=== PATIENT | male | born 1990 | race African-American/Black ===

== ENCOUNTER 2020-05-17 17:53 | Inpatient (IN) | payer SELFPAY ==
[~2020-05-17] VITALS: Ht 177.8 cm; Wt 142.4 kg
[2020-05-17] MEDS ORDERED: CEFTRIAXONE 1 G PREMIX 50 ML IV ONE (19:00)
[2020-05-17] MEDS ORDERED: AZITHROMYCIN 500 MG in DEXT 5% WATER 250 ML IV ONE (19:00)
[2020-05-17] MEDS ORDERED: DEXAMETHASONE 10 MG/ML VIAL IV ONE (19:00)
[2020-05-17] MEDS ORDERED: ASPIRIN 81MG TABLET PO ONE (19:30)
[2020-05-17 19:57] LABS: HEMATOCRIT. 48.3 % (42.0-52.0); HEMOGLOBIN. 15.9 g/dL (14.0-18.0); MEAN CORPUSCULAR HEMOGLOBIN 29.8 pg (28.0-32.0); MEAN CORPUSCULAR VOLUME 90.5 fL (80.0-94.0); PLATELET 429 x1000/uL (130-400); RED BLOOD CELL COUNT 5.34 mill/uL (4.7-6.1); RED CELL DISTRIBUTION WIDTH 14.3 % (11.6-14.6)
[2020-05-17 20:03] LABS: CHLORIDE 101 mEq/L (98-107)
[2020-05-17 20:14] LABS: D-DIMER 11.31 mg/L FEU (<0.50); INR 1.1; PARTIAL THROMBOPLASTIN TIME 25.9 sec (23.4-31.0); PROTHROMBIN TIME 11.3 sec (9.6-11.0)
[2020-05-17] MEDS ORDERED: ENOXAPARIN 150MG/ML SYR SUBCUT ONE (20:45)
[2020-05-17 20:56] LABS: PLATELET ESTIMATE SLIGHTLY INCREASED
[2020-05-17] MEDS ORDERED: IOHEXOL-350 100 ML BOTTLE ONE (23:22)
[2020-05-18] VITALS (7 sets, daily range): BP systolic 132–154; BP diastolic 77–100
[2020-05-18] MEDS ORDERED: ALBUTEROL 6.7GM HFA INHALER ORI PRN (00:45)
[2020-05-18] MEDS ORDERED: CEFTRIAXONE 1 G PREMIX 50 ML IV SCH (00:45)
[2020-05-18] MEDS: ACETAMINOPHEN 325MG TABLET PO PRN ×2 (00:55→17:38)
[2020-05-18] MEDS: FAMOTIDINE 20MG TABLET PO SCH ×2 (08:35→20:35)
[2020-05-18] MEDS: DEXAMETHASONE 4MG/ML 1ML VIAL IV SCH (08:47)
[2020-05-18] MEDS ORDERED: ENOXAPARIN 40MG/0.4ML SYR SUBCUT SCH (09:00)
[2020-05-18] MEDS ORDERED: ENOXAPARIN 100MG/ML SYR SUBCUT NR (09:45)
[2020-05-18 12:29] LABS: HEMATOCRIT. 43.5 % (42.0-52.0); MEAN CORPUSCULAR HEMOGLOBIN 31.2 pg (28.0-32.0); MEAN CORPUSCULAR VOLUME 90.3 fL (80.0-94.0); MEAN PLATELET VOLUME 7.2 fl (7.4-10.4); PLATELET 404 x1000/uL (130-400); RED BLOOD CELL COUNT 4.82 mill/uL (4.7-6.1); RED CELL DISTRIBUTION WIDTH 14.1 % (11.6-14.6)
[2020-05-18 12:35] LABS: CHLORIDE 106 mEq/L (98-107)
[2020-05-18] MEDS: AMLODIPINE 10MG TABLET PO SCH (12:57)
[2020-05-18 16:44] LABS: CLARITY URINE CLOUDY (CLEAR); COLOR URINE DARK YELLOW (YELLOW); KETONES URINE TRACE (NEGATIVE); LEUKOCYTE ESTERASE URINE NEGATIVE (NEGATIVE); NITRITE URINE NEGATIVE (NEGATIVE); OCCULT BLOOD URINE NEGATIVE (NEGATIVE); PROTEIN URINE TRACE (NEGATIVE); SPECIFIC GRAVITY URINE 1.032 (1.005-1.030)
[2020-05-18 17:03] LABS: *AMPHETAMINES SCREEN URINE NEGATIVE (NEGATIVE); *BARBITURATES SCREEN URINE NEGATIVE (NEGATIVE); *BENZODIAZEPINES SCREEN URINE NEGATIVE (NEGATIVE); *COCAINE SCREEN URINE NEGATIVE (NEGATIVE); METHADONE URINE SCREEN NEGATIVE (NEGATIVE)
[2020-05-18 17:04] LABS: CANNABINOID URINE SCREEN PRESUMTIVE POSITIVE (NEGATIVE); OPIATES URINE SCREEN NEGATIVE (NEGATIVE); PHENCYCLIDINE URINE SCREEN NEGATIVE (NEGATIVE)
[2020-05-18] MEDS ORDERED: CEFTRIAXONE 1,000 MG in DEXTROSE 5% WATER 50 ML IV SCH (20:00)
[2020-05-18] MEDS: ENOXAPARIN 150MG/ML SYR SUBCUT SCH (20:36)
[2020-05-18] MEDS ORDERED: AZITHROMYCIN 500 MG in DEXT 5% WATER 250 ML IV SCH (21:00)
[2020-05-18 21:57] LABS: PLATELET ESTIMATE INCREASED
[2020-05-19 00:02] VITALS: BP 113/71
[2020-05-19 04:00] VITALS: BP 142/89
[2020-05-19 08:00] VITALS: BP 137/86
[2020-05-19 08:05] LABS: BG BASE EXCESS 3.1 mmol/L (-2.0-2.0); BG CARBOXYHEMOGLOBIN 0.4 % (0.5-1.5); BG DEOXYHEMOGLOBIN 6.4 % (0.0-5.0); BG FRACTION INSPIRED OXYGEN 36; BG HCO3 ACT 27.9 mmol/L (22.0-26.0); BG METHEMOGLOBIN 0.4 % (0.0-1.5); BG OXYGEN SATURATION 93.5 % (92.0-98.5); BG OXYHEMOGLOBIN 92.8 % (94.0-97.0); BG PCO2 43.4 mmHg (35.0-45.0); BG PH 7.426 (7.350-7.450); BG PO2 66.3 mmHg (75.0-100.0); BG SAMPLE SITE RIGHT RADIAL; BG TOTAL HEMOGLOBIN 14.4 g/dL (12.0-18.0); BG VENT MODE NASAL CANNULA
[2020-05-19] MEDS: DEXAMETHASONE 4MG/ML 1ML VIAL IV SCH (09:15)
[2020-05-19] MEDS: FAMOTIDINE 20MG TABLET PO SCH (09:15)
[2020-05-19] MEDS: AMLODIPINE 10MG TABLET PO SCH (09:15)
[2020-05-19] MEDS: ENOXAPARIN 150MG/ML SYR SUBCUT SCH (09:15)
[2020-05-19 12:00] VITALS: BP 139/82
[2020-05-19] MEDS ORDERED: XAR15 MT (14:21)
[2020-05-19] MEDS ORDERED: DEXA6TAB MT (14:23)
[2020-05-19] MEDS ORDERED: LEVO500T89 MT (14:24)
[2020-05-19 15:01] VITALS: BP 125/78
[2020-05-19 15:58] VITALS: BP 125/78
== END 2020-05-19 18:20 | disposition home or self-care (01) | DRG 720 ==
LOC: ER 17:53 → 7WST 20:47 → ENRESERV 22:50
PROVIDERS: ADMIT Internal Medicine; ATTEND Internal Medicine
DX: A41.89 Other specified sepsis (principal); U07.1 COVID-19; I26.99 Other pulmonary embolism without acute cor pulmonale; J96.01 Acute respiratory failure with hypoxia; J12.82 Pneumonia due to coronavirus disease 2019; B97.89 Other viral agents as the cause of diseases classified elsewhere; E66.9 Obesity, unspecified; R74.01 Elevation of levels of liver transaminase levels; E44.1 Mild protein-calorie malnutrition; F12.90 Cannabis use, unspecified, uncomplicated; Z71.3 Dietary counseling and surveillance; Z68.42 Body mass index [BMI] 45.0-49.9, adult; Z80.3 Family history of malignant neoplasm of breast; Z82.49 Family history of ischemic heart disease and other diseases of the circulatory system; Z83.3 Family history of diabetes mellitus
CPT/HCPCS: 36415; 36600; 71045; 71275; 80048; 80053; 80305; 81003; 82375; 82728; 82805; 83605; 83615; 83880; 84145; 84484; 85025; 85379; 85384; 86140; 93005; 99285; J0456; J0696; J1100; J1650; J7040; J7060; Q9967; U0003